=== PATIENT | female | born 1950 | race Caucasian/White ===

== ENCOUNTER 2024-06-30 10:06 | Emergency (ER) | payer OTHER, SELFPAY ==
[2024-06-30 10:09] VITALS: BP 144/69
[2024-06-30 10:36] LABS: % Basophils 0.4 % (0-2); % Eosinophils 2.2 % (0-6); % Immature Granulocytes 0.4 % (0-0.5); % Lymphocytes 34.5 % (20.5-51.1); % Monocytes 11.4 % (1.7-9.3); % Neutrophils 51.1 % (42.2-75.2); Absolute Eosinophils 0.1 10^3/uL (0-0.7); Absolute Lymphocytes 1.9 10^3/uL (1.2-3.4); Absolute Monocytes 0.6 10^3/uL (0.1-0.6); Absolute Neutrophils 2.8 10^3/uL (1.4-6.5); Hemoglobin 14.1 g/dL (12.0-16.0); Mean Corp Hgb Conc. 33.6 g/dL (33.0-37.0); Mean Corpuscular Hgb 29.6 pg (27.0-31.0); Mean Corpuscular Volume 88.1 fL (81.0-99.0); Mean Platelet Volume 10.9 fL (7.4-10.4); Nucleated Red Blood Cells % 0 %; Platelet Count 249 10^3/uL (130-400); Red Blood Cell Count 4.77 10^6/uL (4.20-5.40); Red Cell Dist. Width 11.9 % (11.5-14.5); White Blood Cell Count 5.5 10^3/uL (4.8-10.8)
[2024-06-30 10:48] LABS: ALT (SGPT) 20 U/L (0-35); AST (SGOT) 27 U/L (14-36); Albumin 4.4 g/dl (3.5-5.0); Alkaline Phosphatase 106 U/L (38-126); Blood Urea Nitrogen 14 mg/dl (7-17); Calcium 9.6 mg/dl (8.4-10.2); Carbon Dioxide 29 mmol/L (22-30); Chloride 104 mmol/L (98-107); Glucose 114 mg/dl (70-99); Potassium 4.2 mmol/L (3.5-5.1); Sodium 140 mmol/L (135-145); Total Bilirubin 0.5 mg/dl (0.2-1.3); Total Protein 6.8 g/dl (6.3-8.2); eGFR > 60.00
[2024-06-30 11:39] VITALS: BP 128/57
[2024-06-30 11:40] VITALS: BP 128/57
--- NOTE | 2024-06-30 11:56 | ED.GENMED ---
History of Present Illness
General
Chief Complaint: Visual Problem
Time Seen by Provider: 06/30/24 11:08
History of Present Illness
History of Present Illness:
73-year-old female history of occipital migraines presenting with left eye visual changes last night. Patient states that she felt like a curtain was going over her left eye, visual loss in the bottom visual field of her left eye. Patient states
the symptoms lasted approximately 5 minutes and then resolved. Patient denies any headache, numbness, weakness, tingling or other visual changes. Patient reports history of occipital migraines but states that typically happens with a headache and
visual changes described as a nulato in the middle of her vision that then expands. No history of similar symptoms. No falls or head trauma
Phy Exam
Physical Exam
Physical Exam:
General: Alert, no acute distress
Head: NCAT
Eyes: clear conjunctiva, PERRLA, EOMI
Neck: supple
Cardiac: regular rate and rhythm, no murmur
Lungs: clear to auscultation bilaterally. No wheezes, rales, or rhonchi. Speaking full unlabored sentences. No respiratory distress.
Abdomen: soft, nondistended nontender. No rebound or guarding.
MSK: no lower extremity edema bilaterally. No deformity
Skin: warm, dry
Neuro: Alert and oriented x3. Cranial nerves II through XII grossly intact no focal deficits. Normal finger-nose. 5-5 strength bilateral upper and lower extremities. No pronator drift bilateral upper and lower extremities. Vision intact
bilaterally in all visual [place]. No slurred speech
Course
Orders/Labs/Results
Orders:
Orders
06/30/24 10:16
CT Head W/o Iv Contrast Urgent
Comment:
Reason For Exam: visual field cut L eye
06/30/24 10:24
CMP [Comprehensive Metabolic Panel] Urgent
Complete Blood Count/With Diff Urgent
Abnormal Lab Results
06/30/24
10:24
MPV 10.9 H fL
(7.4-10.4)
Monocytes % 11.4 H %
(1.7-9.3)
Glucose 114 H mg/dl
(70-99)
06/30/24 10:24
06/30/24 10:24
Vital Signs
Initial and Last Documented VS:
Initial Vital Signs
Temp Pulse Resp BP Pulse Ox
98.6 F 82 16 144/69 94
06/30/24 10:09 06/30/24 10:09 06/30/24 10:09 06/30/24 10:09 06/30/24 10:09
Last Documented Vital Signs
Temp Pulse Resp BP Pulse Ox
97.9 F 68 20 111/64 98
06/30/24 12:21 06/30/24 12:21 06/30/24 12:21 06/30/24 12:21 06/30/24 12:21
MDM/Problems Addressed
Differential Diagnosis Includes:
Retinal detachment, posterior vitreous hemorrhage, electrolyte abnormality, AL, occipital migraine
MDM/Problems Addressed:
73-year-old female presenting with visual field cut to her left left eye lasting for 5 minutes last night. Patient states that she was unable to see the bottom vision of her just her left eye. No history of similar symptoms. Neurologically intact
with normal vision today. Labs reviewed, unremarkable. CT head unremarkable. Bedside ultrasound left eye shows no retinal detachment, no vitreous hemorrhage. Given the visual field cut was horizontally the bottom half, lower suspicion for TIA,
higher suspicion for eye etiology. Given patient is currently neurologically intact with normal vision with unremarkable bedside eye ultrasound, stable for discharge with ophthalmology follow-up
*Critical Care Note
Total Time (30-74mins, 75-104mins- exclusive of procedures): Not Applicable
ED Attending Note
-
Portions of this chart may have been created with voice recognition software.� Occasional wrong word or��sound alike� substitutions may have occurred due to the inherent limitations of voice recognition software.
Discharge Plan
Departure
Patient Disposition: Home (Routine Discharge)
Date of Disposition: 06/30/24
Time of Disposition: 12:01
Patient with high blood pressure during this ER visit?: Yes
Discharge Problem:
Visual loss, transient
Instructions: BLOOD PRESSURE
Referrals:
Johanna Bach MD [Family Provider] -
Activity Restrictions/Additional Instructions:
Follow-up with ophthalmology in 1 to 2 days
Return to the emergency department for persistent visual change, numbness, weakness, tingling or new/worsening symptoms
Interventions
Interventions:
*Risk Screen - Suicide Last Done: 06/30/24 10:09
*General Assessment Last Done: 06/30/24 10:09
*Neglect/Abuse Screening Last Done: 06/30/24 11:40
*ED- Fall Risk Assessment Last Done: 06/30/24 11:40
*ED COVID-19 Vaccine History Last Done: 06/30/24 11:45
*Nursing Disposition Last Done: 06/30/24 12:21
ED- Neurological Assessment Last Done: 06/30/24 11:40
ED-EENT Assessment Last Done: 06/30/24 11:40
ED Swallowing Screen Last Done: 06/30/24 11:58
Discharge Date and Time
Discharge Date/Time: 06/30/24 12:23
Print Language: LATVIAN
[2024-06-30 12:21] VITALS: BP 111/64
== END 2024-06-30 12:23 | disposition home or self-care (01) ==
LOC: EMR 10:06
PROVIDERS: Emergency Medicine; EMERGENCY PHYSICIAN Emergency Medicine; FAMILY PHYSICIAN Internal Medicine
DX: H53.122 Transient visual loss, left eye (principal)
CPT/HCPCS: 99284; 70450; 80053; 85025

== ENCOUNTER → 2024-07-07 07:53 | Outpatient (REF) | payer OTHER, SELFPAY | LOC: RAD 07:53 | PROVIDERS: ATTENDING PHYSICIAN Internal Medicine; FAMILY PHYSICIAN Ophthalmology | DX: G45.3 Amaurosis fugax (principal) | CPT/HCPCS: 93880 ==

== ENCOUNTER 2024-07-18 11:45 | Emergency (ER) | payer OTHER, SELFPAY ==
[2024-07-18 11:46] VITALS: BP 141/80
--- NOTE | 2024-07-18 12:18 | ED.GENMED ---
History of Present Illness
General
Chief Complaint: Fall
Time Seen by Provider: 07/18/24 12:13
History of Present Illness
History of Present Illness:
74-year-old female presents to the emergency department for evaluation of bilateral hand/wrist pain as well as left knee pain after falling in a parking lot last night. Primary source of injury is the left thumb
Review of Systems
Review of Systems
Allergies reviewed?: Yes
All Other Systems: ROS reviewed and negative except as documented in HPI and ROS
Phy Exam
Physical Exam
Physical Exam:
GEN: Well appearing, NAD, WDWN
HEENT: Oral mucosa moist, no scleral icterus
Cardiac: Regular rate
Lung: No respiratory distress, no tachypnea
MSK: Moderate swelling and ecchymosis to the left thumb. No swelling or deformity of the left wrist or right wrist. Moderate ecchymosis to the anterior left knee with normal range of motion
Skin: Good color, no pallor or jaundice, no rashes
Neuro: AO x3, moves all extremities freely
Psych: Calm, cooperative
Course
Orders/Labs/Results
Orders:
Orders
07/18/24 12:18
CR Finger(s)/thumb Min 2 Vw Lt Urgent
Comment:
Reason For Exam: fall
Indicate Which Finger:: Thumb
CR Knee - Left 4 Or More View* Urgent
Comment:
Reason For Exam: fall injury
07/18/24 12:56
CR Wrist - Right Min 3 Views Urgent
Comment:
Reason For Exam: fall
07/18/24 14:06
CR Finger(s)/thumb Min 2 Vw Lt Urgent
Comment:
Reason For Exam: post reduction
Vital Signs
Initial and Last Documented VS:
Initial Vital Signs
Temp Pulse Resp BP Pulse Ox
97.9 F 73 16 141/80 95
07/18/24 11:46 07/18/24 11:46 07/18/24 11:46 07/18/24 11:46 07/18/24 11:46
Last Documented Vital Signs
Temp Pulse Resp BP Pulse Ox
97.9 F 73 16 141/80 95
07/18/24 11:46 07/18/24 11:46 07/18/24 11:46 07/18/24 11:46 07/18/24 11:46
MDM/Problems Addressed
MDM/Problems Addressed:
Imaging of the left knee and right wrist is normal. Left thumb reveals a transverse distal phalanx fracture, this is reduced gently at the bedside and a splint was placed. She will follow-up as an outpatient with hand surgery
*Critical Care Note
Total Time (30-74mins, 75-104mins- exclusive of procedures): Not Applicable
ED Attending Note
-
Portions of this chart may have been created with voice recognition software.� Occasional wrong word or��sound alike� substitutions may have occurred due to the inherent limitations of voice recognition software.
Discharge Plan
Departure
Patient Disposition: Home (Routine Discharge)
Date of Disposition: 07/18/24
Time of Disposition: 14:46
Patient with high blood pressure during this ER visit?: No
Discharge Problem:
Closed fracture of distal phalanx of left thumb
Instructions: Finger Fracture ED
Referrals:
Johanna Bach MD [Family Provider] -
Activity Restrictions/Additional Instructions:
Keep splint in place until Orthopedic follow up
Interventions
Interventions:
*Risk Screen - Suicide Last Done: 07/18/24 11:48
*General Assessment Last Done: 07/18/24 12:03
*Neglect/Abuse Screening Last Done: 07/18/24 11:48
*ED- Fall Risk Assessment Last Done: 07/18/24 12:03
*ED COVID-19 Vaccine History Last Done: 07/18/24 12:03
*Nursing Disposition Last Done: 07/18/24 15:00
ED-Musculoskeletal Assessment Last Done: 07/18/24 12:03
ED- Neurological Assessment Last Done: 07/18/24 12:03
ED-Skin Assessment Last Done: 07/18/24 12:03
Discharge Date and Time
Discharge Date/Time: 07/18/24 15:01
Print Language: KOREAN
== END 2024-07-18 15:01 | disposition home or self-care (01) ==
LOC: EMR 11:45
PROVIDERS: EMERGENCY PHYSICIAN Emergency Medicine; FAMILY PHYSICIAN Internal Medicine; REFERRING PHYSICIAN Student in an Organized Health Care Education/Training Program
DX: S62.522A Displaced fracture of distal phalanx of left thumb, initial encounter for closed fracture (principal); S80.02XA Contusion of left knee, initial encounter; W19.XXXA Unspecified fall, initial encounter; Y92.481 Parking lot as the place of occurrence of the external cause
CPT/HCPCS: 26755; 99283; 73110; 73140; 73564

== ENCOUNTER → 2024-08-06 08:05 | Outpatient (REF) | payer OTHER, SELFPAY | LOC: RCS 08:05 | PROVIDERS: ATTENDING PHYSICIAN Internal Medicine Cardiovascular Disease; FAMILY PHYSICIAN Internal Medicine | DX: G45.3 Amaurosis fugax (principal) | CPT/HCPCS: 93306 ==